=== PATIENT | male | born 1970 | race African-American/Black ===

== ENCOUNTER 2017-01-09 12:55 | Emergency (ER) | payer OTHER ==
[~2017-01-09] VITALS: Ht 180.3 cm; Wt 70.8 kg
[2017-01-09] MEDS ORDERED: METO-346 (13:03)
[2017-01-09] MEDS ORDERED: MAGN1TAB25 (13:03)
[2017-01-09] MEDS ORDERED: AMIT100TA (13:03)
[2017-01-09] MEDS ORDERED: LIPITOR (13:03)
[2017-01-09] MEDS ORDERED: VITA50003 (13:03)
[2017-01-09] MEDS ORDERED: GABA800T (13:03)
[2017-01-09] MEDS ORDERED: NAPR550T3 (13:03)
[2017-01-09] MEDS ORDERED: HYDR25TA6 (13:03)
[2017-01-09] MEDS ORDERED: ACET-654 (13:03)
[2017-01-09] MEDS ORDERED: LISI40TAB (13:03)
[2017-01-09 15:30] VITALS: BP 167/104
[2017-01-09] MEDS ORDERED: KETO10TAB PO (15:42)
[2017-01-09] MEDS ORDERED: KETOROLAC 60 MG/2 ML VIAL (J1885) IM ONE (15:45)
--- NOTE | 2017-01-09 15:52 | REP ---
CT study of the brain without contrast: History: Trauma right temporal area with swelling. Post surgery. Comparison CT study is from July 02, 2016. 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 The subgaleal fluid collection observed on the July 11 2016 prior study has resolved. The scalp soft tissues are unremarkable. There is an area of encephalomalacia in the right frontal lobe again noted. There is dystrophic parenchymal calcification within this. This is unchanged from July 11, 2016 prior study. There is no evidence of intracranial hemorrhage. There is encephalomalacia in the sub insular white matter of the right basal ganglia, also unchanged. There is no evidence of new infarct, bleed, extra-axial fluid collection or midline shift. Impression: Chronic changes. No acute intracranial lesion. Signed by Junior Castellano MD 01/09/2017 04:12 P
== END 2017-01-09 16:06 | disposition home or self-care (01) ==
LOC: M ED 14:31
DX: S06.0X0A Concussion without loss of consciousness, initial encounter (principal); W21.02XA Struck by soccer ball, initial encounter; Y92.830 Public park as the place of occurrence of the external cause; Y93.89 Activity, other specified; Y99.8 Other external cause status; F17.200 Nicotine dependence, unspecified, uncomplicated; I10 Essential (primary) hypertension; E78.00 Pure hypercholesterolemia, unspecified; Z88.5 Allergy status to narcotic agent; Z88.0 Allergy status to penicillin; Z79.899 Other long term (current) drug therapy
CPT/HCPCS: 70450; 96372; 99282; J1885

== ENCOUNTER 2017-04-05 12:44 | Emergency (ER) | payer OTHER ==
[~2017-04-05] VITALS: Ht 180.3 cm; Wt 73.1 kg
[~2017-04-05 12:44] MED LIST: ACET1TAB17; AMIT100TA; GABA800T; HYDR25TA6; KETO10TAB PO; LIPITOR; LISI40TAB; MAGN1TAB25; METO-346; NAPR550T22; VITA1CAP40
[2017-04-05] MEDS ORDERED: fentaNYL 100 MCG/2 ML INJECTION (J3010) IV ONE (13:15)
[2017-04-05] MEDS ORDERED: PANTOPRAZOLE 40MG INJ (PROTONIX) (C9113) IV ONE (13:15)
[2017-04-05] MEDS ORDERED: NS 1,000 ML IV ONE (13:15)
[2017-04-05 13:45] LABS: BASO % 0.7 % (0.0-1.0); EOS # 0.1 K/mm3 (0.0-0.50); EOS % 1.1 % (0.0-3.0); LARGE UNSTAINED CELL # 0.1 K/mm3 (0.0-0.4); LARGE UNSTAINED CELL % 1.9 % (0.0-4.0); LYMPH # 1.3 K/mm3 (1.5-4.5); MEAN CORPUSCULAR HEMOGLOBIN 32.5 pg (27.0-33.0); MEAN CORPUSCULAR HGB CONC 33.6 g/dl (32.0-36.5); MEAN CORPUSCULAR VOLUME 96.8 fl (80.0-96.0); MONO # 0.3 K/mm3 (0.0-0.8); MONO % 5.8 % (0.0-5.0); NEUTROPHILS # 3.7 K/mm3 (1.8-7.7); NEUTROPHILS % 67.5 % (36.0-66.0); PLATELET COUNT, AUTOMATED 211 k/mm3 (150-450); WHITE BLOOD COUNT 5.5 K/mm3 (4.0-10.0)
[2017-04-05 13:52] LABS: INR 0.97
[2017-04-05 14:19] LABS: ALBUMIN 4.1 GM/DL (3.2-5.2); ALBUMIN/GLOBULIN RATIO 1.11 (1.00-1.93); ALKALINE PHOSPHATASE 51 U/L (45-117); ALT/SGPT 25 U/L (12-78); AMYLASE 85 U/L (25-115); ANION GAP 8 MEQ/L (8-16); AST/SGOT 20 U/L (15-37); BILIRUBIN,DIRECT 0.1 MG/DL (0.0-0.2); BILIRUBIN,TOTAL 0.7 MG/DL (0.2-1.0); BLOOD UREA NITROGEN 14 MG/DL (7-18); CALCIUM LEVEL 9.3 MG/DL (8.5-10.1); CARBON DIOXIDE LEVEL 30 MEQ/L (21-32); CHLORIDE LEVEL 104 MEQ/L (98-107); CREATININE FOR GFR 1.33 MG/DL (0.70-1.30); GLOMERULAR FILTRATION RATE > 60.0 (>60); GLUCOSE, FASTING 82 MG/DL (70-105); POTASSIUM SERUM 3.7 MEQ/L (3.5-5.1); SODIUM LEVEL 142 MEQ/L (136-145); TOTAL PROTEIN 7.8 GM/DL (6.4-8.2)
[2017-04-05] MEDS ORDERED: ISOVUE-370 76% 100ML VIAL (Q9967) As Ordered ONE (14:39)
[2017-04-05] MEDS ORDERED: GI COCKTAIL 50ML BTL(HYOSCYAMINE/MAALOX/LIDOCAINE VISCOUS)(1:3:1) PO ONE (15:00)
--- NOTE | 2017-04-05 15:10 | REP ---
Clinical: Epigastric pain. Pancreatitis. Technique: Axial contrast enhanced images from the lung bases to the pubic symphysis using 100 ml Isovue 370 intravenous contrast material with coronal and sagittal re-formations. Findings: Lung bases clear. Visualized heart and pericardium normal. Liver, spleen, pancreas, gallbladder, bilateral adrenal glands and kidneys are normal. The enteric system is without obstruction or acute inflammatory process. Normal terminal ileum and appendix identified in the right lower quadrant. Pelvis demonstrates normal bladder and age appropriate prostate/seminal vesicles. No ascites. No free air. No adenopathy. Vasculature normal. Surrounding musculoskeletal structures are intact. Impression: Normal contrast enhanced CT of the abdomen and pelvis. No acute abdominopelvic pathology appreciated. Signed by Waqas Michael MD 04/05/2017 03:01 P
[2017-04-05] MEDS ORDERED: CARA1TAB6 PO (15:39)
[2017-04-05] MEDS ORDERED: PROT1TAB2 PO (15:39)
[2017-04-05 15:47] VITALS: BP 149/85
== END 2017-04-05 15:47 | disposition home or self-care (01) ==
LOC: M ED 12:44
DX: R10.10 Upper abdominal pain, unspecified (principal); R11.2 Nausea with vomiting, unspecified; I10 Essential (primary) hypertension; E78.00 Pure hypercholesterolemia, unspecified; F17.200 Nicotine dependence, unspecified, uncomplicated; Z88.5 Allergy status to narcotic agent; Z88.1 Allergy status to other antibiotic agents; Z79.899 Other long term (current) drug therapy
CPT/HCPCS: 74177; 80048; 80076; 82150; 83690; 85025; 85610; 96374; 96375; 99283; C9113; J3010; Q9967

== ENCOUNTER 2017-06-15 19:28 | Emergency (ER) | payer OTHER ==
[~2017-06-15] VITALS: Ht 180.3 cm; Wt 70.9 kg
[~2017-06-15 19:28] MED LIST changes: +CARA1TAB6 PO; +PROT1TAB2 PO
[2017-06-15] MEDS ORDERED: ZOFR4TAB3 PO (20:08)
[2017-06-15] MEDS ORDERED: PERC5TAB12 PO (20:08)
[2017-06-15] MEDS ORDERED: PERCOCET 5MG/325MG TAB PO ONE (20:15)
[2017-06-15] MEDS ORDERED: ONDANSETRON 4 MG ORAL DISINTEGRATING TAB (S0181) PO ONE (20:15)
[2017-06-15 20:23] VITALS: BP 168/92
== END 2017-06-15 20:24 | disposition home or self-care (01) ==
LOC: M ED 19:28
DX: G43.109 Migraine with aura, not intractable, without status migrainosus (principal); I10 Essential (primary) hypertension; Z87.828 Personal history of other (healed) physical injury and trauma; F17.210 Nicotine dependence, cigarettes, uncomplicated; Z88.5 Allergy status to narcotic agent; Z88.1 Allergy status to other antibiotic agents

== ENCOUNTER 2017-07-13 12:17 | Emergency (ER) | payer OTHER ==
[~2017-07-13] VITALS: Ht 180.3 cm; Wt 71.4 kg
[~2017-07-13 12:17] MED LIST changes: +PERC5TAB12 PO; +ZOFR4TAB3 PO
[2017-07-13] MEDS ORDERED: diphenhydrAMINE INJ 50MG/ML VIAL (J1200) IV STA (13:10)
[2017-07-13] MEDS ORDERED: KETOROLAC 30 MG/ML VIAL (J1885) IV ONE (13:15)
[2017-07-13] MEDS ORDERED: METOCLOPRAMIDE INJ 10MG/2ML VIAL (J2765) IV ONE (13:15)
[2017-07-13] MEDS ORDERED: REGL10TA6 PO (14:54)
[2017-07-13 15:09] VITALS: BP 183/98
== END 2017-07-13 15:12 | disposition home or self-care (01) ==
LOC: M ED 12:17
DX: G43.709 Chronic migraine without aura, not intractable, without status migrainosus (principal); I10 Essential (primary) hypertension; F17.210 Nicotine dependence, cigarettes, uncomplicated; Z79.899 Other long term (current) drug therapy; Z88.5 Allergy status to narcotic agent; Z88.1 Allergy status to other antibiotic agents
CPT/HCPCS: 96374; 96375; 99283; J1200; J1885; J2765

== ENCOUNTER 2017-11-15 11:56 | Emergency (ER) | payer OTHER, SELFPAY ==
[2017-11-15] MEDS: KETOROLAC 60 MG/2 ML VIAL (J1885) IM (15:16)
[2017-11-15 15:21] LABS: BASO % 0.8 % (0.0-1.0); EOS % 0.4 % (0.0-3.0); HEMATOCRIT 48.5 % (42.0-52.0); HEMOGLOBIN 16.5 g/dl (14.0-18.0); IMMATURE GRANULOCYTE % 0.2 % (0-3.0); LYMPH # 1.7 10^3/uL (1.5-4.5); MEAN CORPUSCULAR HEMOGLOBIN 31.6 pg (27.0-33.0); MEAN CORPUSCULAR VOLUME 92.9 fl (80.0-96.0); MONO # 0.6 10^3/uL (0.0-0.8); MONO % 12.2 % (0.0-5.0); NEUTROPHILS # 2.8 10^3/uL (1.8-7.7); NEUTROPHILS % 54.4 % (36.0-66.0); PLATELET COUNT, AUTOMATED 265 10^3/uL (150-450); RED BLOOD COUNT 5.22 10^6/uL (4.30-6.10); RED CELL DISTRIBUTION WIDTH 11.2 % (11.5-14.5); WHITE BLOOD COUNT 5.2 10^3/uL (4.0-10.0)
[2017-11-15 15:37] LABS: ALBUMIN 4.6 GM/DL (3.2-5.2); ALBUMIN/GLOBULIN RATIO 1.05 (1.00-1.93); ALKALINE PHOSPHATASE 85 U/L (45-117); ALT/SGPT 17 U/L (12-78); ANION GAP 6 MEQ/L (8-16); AST/SGOT 15 U/L (7-37); BILIRUBIN,DIRECT 0.2 MG/DL (0.0-0.2); BILIRUBIN,TOTAL 0.9 MG/DL (0.2-1.0); BLOOD UREA NITROGEN 16 MG/DL (7-18); CARBON DIOXIDE LEVEL 30 MEQ/L (21-32); CHLORIDE LEVEL 102 MEQ/L (98-107); CREATININE FOR GFR 1.34 MG/DL (0.70-1.30); GLOMERULAR FILTRATION RATE > 60.0 (>60); GLUCOSE, FASTING 98 MG/DL (70-100); LIPASE 1154 U/L (73-393); POTASSIUM SERUM 3.8 MEQ/L (3.5-5.1); SODIUM LEVEL 138 MEQ/L (136-145)
[2017-11-15] MEDS ORDERED: ISOVUE-370 76% 100ML VIAL (Q9967) As Ordered (15:42)
[2017-11-15] MEDS: HYDROmorphone HCL 1 MG/ML SYRINGE (J1170) IV (15:59)
[2017-11-15] MEDS: ONDANSETRON 4MG/2ML VIAL (J2405) IV (15:59)
[2017-11-15] MEDS: NS 1,000 ML IV (16:00)
[2017-11-15 16:36] LABS: HDL CHOLESTEROL 89 MG/DL (>40); TRIGLYCERIDES LEVEL 96 MG/DL (<150)
[2017-11-15 17:06] LABS: CHOLESTEROL LEVEL 219 MG/DL (<200); LDL CHOLESTEROL 110.8 MG/DL (<100); NON-HDL-C 130 MG/DL
== END 2017-11-15 17:04 | disposition home or self-care (01) ==
LOC: M ED 11:56
DX: K59.00 Constipation, unspecified (principal); E78.9 Disorder of lipoprotein metabolism, unspecified; I10 Essential (primary) hypertension; F17.210 Nicotine dependence, cigarettes, uncomplicated; Z79.899 Other long term (current) drug therapy; Z88.5 Allergy status to narcotic agent; Z88.1 Allergy status to other antibiotic agents
CPT/HCPCS: J1170

== ENCOUNTER 2018-07-12 13:21 | Emergency (ER) | payer OTHER ==
[2018-07-12] MEDS: HYDROMORPHONE HCL 0.5 MG/ 0.5 ML SYRINGE (J1170 PER 1) IV (14:01)
[2018-07-12] MEDS: NS 1,000 ML IV ×2 (14:07→16:08)
[2018-07-12 14:16] LABS: BASO % 0.3 % (0.0-1.0); EOS % 0.1 % (0.0-3.0); HEMATOCRIT 44.5 % (42.0-52.0); HEMOGLOBIN 15.4 g/dl (13.5-17.5); IMMATURE GRANULOCYTE % 0.1 % (0-3.0); LYMPH # 1.1 10^3/uL (1.5-4.5); LYMPH % 13.5 % (24.0-44.0); MEAN CORPUSCULAR HEMOGLOBIN 32.9 pg (27.0-33.0); MEAN CORPUSCULAR HGB CONC 34.6 g/dl (32.0-36.5); MEAN CORPUSCULAR VOLUME 95.1 fl (80.0-96.0); MONO # 0.8 10^3/uL (0.0-0.8); MONO % 9.9 % (0.0-5.0); NEUTROPHILS % 76.1 % (36.0-66.0); PLATELET COUNT, AUTOMATED 231 10^3/uL (150-450); RED BLOOD COUNT 4.68 10^6/uL (4.30-6.10); RED CELL DISTRIBUTION WIDTH 11.6 % (11.5-14.5); WHITE BLOOD COUNT 7.8 10^3/uL (4.0-10.0)
[2018-07-12 14:44] LABS: ALBUMIN 3.6 GM/DL (3.2-5.2); ALKALINE PHOSPHATASE 81 U/L (45-117); ALT/SGPT 21 U/L (12-78); ANION GAP 8 MEQ/L (8-16); AST/SGOT 15 U/L (7-37); BILIRUBIN,DIRECT 0.2 MG/DL (0.0-0.2); BILIRUBIN,TOTAL 0.7 MG/DL (0.2-1.0); BLOOD UREA NITROGEN 10 MG/DL (7-18); CALCIUM LEVEL 8.8 MG/DL (8.5-10.1); CARBON DIOXIDE LEVEL 24 MEQ/L (21-32); CHLORIDE LEVEL 107 MEQ/L (98-107); CREATININE FOR GFR 0.86 MG/DL (0.70-1.30); GLOMERULAR FILTRATION RATE > 60.0 (>60); GLUCOSE, FASTING 94 MG/DL (70-100); LIPASE 175 U/L (73-393); POTASSIUM SERUM 3.9 MEQ/L (3.5-5.1); SODIUM LEVEL 139 MEQ/L (136-145); TOTAL PROTEIN 7.6 GM/DL (6.4-8.2)
[2018-07-12] MEDS: LISINOPRIL 40 MG TAB PO (15:52)
[2018-07-12] MEDS: hydroCHLOROthiazide 25 MG TAB PO (15:53)
[2018-07-12 17:43] LABS: KETONE, URINE AUTO RFX TRACE mg/dL (NEGATIVE); LEUKOCYTE ESTERASE UR AUTO RFX TRACE (NEGATIVE); MUCUS, URINE RFX SMALL (NEGATIVE); NITRITE, URINE AUTO RFX NEGATIVE (NEGATIVE); RBC, URINE AUTO RFX 2 /HPF (0-3); SPECIFIC GRAVITY UR AUTO RFX 1.013 (1.002-1.035); SQUAM EPITHELIAL CELL UR AURFX 0 /HPF (0-6); WBC, URINE AUTO RFX 3 /HPF (0-3)
[2018-07-12] MEDS: CIPROFLOXACIN 500 MG TAB PO (18:33)
[2018-07-12] MEDS: cefTRIAXone SOD 250 MG VIAL (J0696) IM (18:36)
[2018-07-12 19:06] LABS: CHLAMYDIA DNA AMPLIFICATION POSITIVE (NEGATIVE); GC DNA AMPLIFICATION NEGATIVE (NEGATIVE)
== END 2018-07-12 18:51 | disposition home or self-care (01) ==
LOC: M ED 13:21
DX: N45.1 Epididymitis (principal); N43.3 Hydrocele, unspecified
CPT/HCPCS: J0696

== ENCOUNTER 2019-02-10 08:16 | Emergency (ER) | payer OTHER ==
[~2019-02-10] VITALS: Ht 180.3 cm; Wt 78.2 kg
[~2019-02-10 08:16] MED LIST changes: -ACET1TAB17; +ACET1TAB55; +ACET1TAB55 PO; -AMIT100TA; +AMIT100TA PO; +CIPR-249 PO; -GABA800T; +GABA800T4 PO; -HYDR25TA6; +HYDR25TA6 PO; +LISI40TA; -LISI40TAB; -MAGN1TAB25; +MAGN1TAB26; +NAPR-832; -NAPR550T22; +REGL10TA6 PO; -VITA1CAP40; +VITA50005 PO; +ZOFR4TAB14 PO; -ZOFR4TAB3 PO
[2019-02-10] MEDS ORDERED: LISINOPRIL 40 MG TAB PO ONE (09:00)
[2019-02-10 09:12] LABS: BASO % 0.5 % (0.0-1.0); EOS % 0.5 % (0.0-3.0); HEMATOCRIT 45.3 % (42.0-52.0); HEMOGLOBIN 15.5 g/dl (13.5-17.5); LYMPH # 1.4 10^3/uL (1.5-4.5); LYMPH % 34.7 % (24.0-44.0); MEAN CORPUSCULAR HEMOGLOBIN 32.4 pg (27.0-33.0); MEAN CORPUSCULAR HGB CONC 34.2 g/dl (32.0-36.5); MEAN CORPUSCULAR VOLUME 94.6 fl (80.0-96.0); MONO # 0.4 10^3/uL (0.0-0.8); MONO % 10.2 % (0.0-5.0); NEUTROPHILS # 2.1 10^3/uL (1.8-7.7); NEUTROPHILS % 54.1 % (36.0-66.0); PLATELET COUNT, AUTOMATED 220 10^3/uL (150-450); RED BLOOD COUNT 4.79 10^6/uL (4.30-6.10); WHITE BLOOD COUNT 3.9 10^3/uL (4.0-10.0)
[2019-02-10 09:22] LABS: INR 0.98; PROTHROMBIN TIME 13.1 SECONDS (12.1-14.4)
[2019-02-10 09:25] LABS: BILIRUBIN, URINE MANUAL NEGATIVE (NEGATIVE); GLUCOSE, URINE (UA) MANUAL 3+(500 MG/DL) mg/dL (NEGATIVE); KETONE, URINE MANUAL NEGATIVE (NEGATIVE); UROBILINOGEN, URINE MANUAL NORMAL (NORMAL)
[2019-02-10 09:27] LABS: RBC, URINE TNTC /hpf (0-3)
[2019-02-10 09:28] LABS: BACTERIA, URINE MOD AMOUNT; HYALINE CAST, URINE NONE SEEN /lpf (0-1)
[2019-02-10 09:35] LABS: BLOOD UREA NITROGEN 13 MG/DL (7-18); CARBON DIOXIDE LEVEL 27 MEQ/L (21-32); CHLORIDE LEVEL 110 MEQ/L (98-107); CREATININE FOR GFR 1.28 MG/DL (0.70-1.30); GLOMERULAR FILTRATION RATE > 60.0 (>60); GLUCOSE, FASTING 98 MG/DL (70-100); POTASSIUM SERUM 3.9 MEQ/L (3.5-5.1); SODIUM LEVEL 142 MEQ/L (136-145)
--- NOTE | 2019-02-10 10:33 | REP ---
CT of the abdomen pelvis without IV or bowel contrast: The study is performed for hematuria. Comparisons are 07/12/2018 and 11/15/2017. The visualized lung braun are unremarkable. The unenhanced hepatic parenchyma, gallbladder, pancreas and spleen are unremarkable. The unenhanced adrenals are unremarkable. There is a faintly visible nonobstructive 2 ml calculus in the left renal upper pole. There are no right renal calculi. There is no hydronephrosis on the right on the left. There is no perinephric stranding on the right on the left. There questionably to tiny nonobstructive calculi in the proximal left ureter, one measuring 3.3 ml in diameter at the L2 level and the other measuring 2.3 mm in diameter at the L2 inferior endplate level. No right ureteral calculi identified. No bladder calculi are identified. No bladder wall masses are identified. The abdominal aorta is unremarkable. No retroperitoneal adenopathy is identified. There is no bowel distension or obstruction. The mesentery is unremarkable. Pelvis: The appendix is unremarkable. There is no ascites or adenopathy. The pelvic bowel loops are unremarkable. Impression: Faintly visible 2 mm left renal calculus. Questionable faintly visible calculi in the proximal left ureter. Electronically Signed by Morris Carbajal MD 02/10/2019 10:24 A
[2019-02-10 10:47] LABS: SQUAMOUS EPITHELIAL CELL URINE NONE SEEN /hpf (SMALL AMT)
[2019-02-10] MEDS ORDERED: cefTRIAXone SOD 2 GM in D5W MINI-BAG PLUS 50 ML IV ONE (11:00)
[2019-02-10] MEDS ORDERED: CIPR-249 PO (11:49)
[2019-02-10 12:34] VITALS: BP 174/92
== END 2019-02-10 12:36 | disposition home or self-care (01) ==
LOC: M ED 08:16
DX: N39.0 Urinary tract infection, site not specified (principal); N20.1 Calculus of ureter; I10 Essential (primary) hypertension; E78.9 Disorder of lipoprotein metabolism, unspecified; Z79.899 Other long term (current) drug therapy; Z88.1 Allergy status to other antibiotic agents; Z88.5 Allergy status to narcotic agent; F17.210 Nicotine dependence, cigarettes, uncomplicated
CPT/HCPCS: 74176; 80048; 81000; 85025; 85610; 87086; 87661; 96365; 99284; J0696

== ENCOUNTER 2022-06-13 09:44 | Emergency (ER) | payer OTHER ==
[~2022-06-13] VITALS: Ht 180.3 cm; Wt 64.5 kg
[~2022-06-13 09:44] MED LIST changes: -LISI40TA; +LISI40TA4
[2022-06-13] MEDS ORDERED: HYDR12.55 PO (09:50)
[2022-06-13 11:40] VITALS: BP 170/84
[2022-06-13] MEDS ORDERED: PERI12LIQ PO (11:40)
[2022-06-13] MEDS ORDERED: AMOX875T2 PO (11:40)
[2022-06-13] MEDS ORDERED: KETOROLAC 30 MG/ML 1ML VIAL IM ONE (11:40)
== END 2022-06-13 11:49 | disposition home or self-care (01) ==
LOC: M ED 09:44
DX: K08.89 Other specified disorders of teeth and supporting structures (principal); I10 Essential (primary) hypertension; F17.200 Nicotine dependence, unspecified, uncomplicated; Z88.1 Allergy status to other antibiotic agents; Z88.5 Allergy status to narcotic agent
CPT/HCPCS: 96372; 99283; J1885